=== PATIENT | female | born 1985 | race Caucasian/White ===

== ENCOUNTER → 2016-11-17 15:46 | Outpatient (CLI) | payer MEDICAID ==
[2015-02-07 01:07] VITALS: BMI 22.7
[~2016-11-17 15:46] MED LIST: IBUPROFEN600 MG PO; PERCOCET 5-3251 TAB PO; PRENAVITE1 TAB PO
== END | disposition home or self-care (01) ==
LOC: D.LAB 15:46
DX: O20.0 Threatened abortion (principal)

== ENCOUNTER → 2016-11-19 13:48 | Outpatient (CLI) | payer MEDICAID ==
[2015-02-07 01:07] VITALS: BMI 22.7
== END | disposition home or self-care (01) ==
LOC: D.LABREF 13:48
DX: O20.0 Threatened abortion (principal)

== ENCOUNTER 2016-12-14 05:50 | Day surgery (SDC) | payer MEDICAID ==
[2016-12-13 14:26] LABS: BASOPHILS 0.4 % (0.0-2.0); EOSINOPHILS 13.4 % (0-7); HEMATOCRIT 35.5 % (36.0-48.0); HEMOGLOBIN 12.1 g/dL (12-16); IMMATURE GRANULOCYTES 0.1 % (0-5); LYMPHOCYTES 25.6 % (15-50); MCH 29.5 pg (26.0-34.0); MCHC 34.1 g/dL (31.0-37.0); MCV 86.6 fL (80.0-100.0); MEAN PLATELET VOLUME 9.1 fL (7.4-10.4); MONOCYTES 5.3 % (2-11); NEUTROPHILS 55.2 % (40-80); PLATELET COUNT 176 10x3/uL (130-400); RDW 12.6 % (11.5-14.5); WBC 8.9 10x3/uL (4.8-10.8)
[~2016-12-14] VITALS: Ht 157.5 cm; Wt 48.5 kg
[2016-12-14 05:49] VITALS: BP 106/67; Ht 157.5 cm; Wt 48.5 kg
[2016-12-14] MEDS ORDERED: IBUPROFEN600 MG PO (09:36)
[2016-12-14] MEDS ORDERED: PERCOCET 5-3251 TAB PO (09:36)
--- NOTE | 2016-12-19 07:44 | OP ---
PATIENT NAME: PUMA GUZMAN MEDICAL RECORD: [id number] :83 LOCATION:D.OPS ADMISSION DATE: SURGEON: RALPH SANTOS MD DATE OF OPERATION: 12/14/2016 PREOPERATIVE DIAGNOSES: 1. 8-week missed spontaneous . 2. An embryonic gestation. POSTOPERATIVE DIAGNOSES: 1. 8-week missed spontaneous . 2. An embryonic gestation. SURGEON: Ralph Santos MD. ANESTHESIA: Laryngeal mask anesthesia with Dr. Jose Man MD. PROCEDURE: Dilation and curettage. FINDINGS: Uterus sounded to 8 cm. DESCRIPTION OF PROCEDURE: After informed consent was given, the patient was taken to the operating room where laryngeal mask anesthesia was placed and found to be adequate. She was placed in a dorsal lithotomy position in [facility]. She was prepped and draped sterilely including a vaginal prep. A catheter was placed into her bladder and bladder drained with approximately 100 cc of clear urine return. A bivalve speculum was then placed in the vagina and the cervix visualized and grasped anteriorly with a single-tooth tenaculum. The uterus was then sounded sounding to 8 cm. The sharp and suction curettage was then employed utilizing a 7-mm suction curette until a gritty texture was noted circumferentially within the endometrial cavity. Once this was accomplished, the single-tooth tenaculum was removed and silver nitrate was used at the tenaculum sites with excellent hemostasis noted. The bivalve speculum was removed and 800 mcg of Cytotec was placed rectally to aid additionally in hemostasis and hemostasis was assured. The patient was returned to a supine position, awakened and taken into the recovery room in stable condition. The patient tolerated procedure well. Sponge, lap and instrument counts were reported correct times 2. ESTIMATED BLOOD LOSS: Minimal. URINE OUTPUT: 100 cc. SPECIMENS: Products of conception. COMPLICATIONS: None. TRANSINT:[id number] Voice Confirmation ID: [id number] DOCUMENT ID: [id number] OPERATIVE REPORT [id number] MEGANOLIVIARALPH RODRIGUEZ MD at 0744 CC: [id number] DICTATION DATE: 12/14/16 0834 CANDY SEPARATOR ENROBING: 12/14/[address] [place] [address] 12/14/16 [place] [id number] [place] [address]
== END 2016-12-14 10:00 | disposition home or self-care (01) ==
LOC: D.OPS 05:50 → D.PAN 07:30 → D.OPS 10:00
PROVIDERS: Specialist
DX: O02.1 Missed abortion (principal)

== ENCOUNTER 2017-11-16 06:01 | Emergency (ER) | payer MEDICAID ==
[2016-12-14 05:49] VITALS: BMI 19.6
[2017-11-16 06:27] LABS: BASOPHILS 0.3 % (0-2); EOSINOPHILS 16.1 % (0-7); HEMATOCRIT 39.4 % (36.0-48.0); HEMOGLOBIN 13.4 g/dL (12-16); IMMATURE GRANULOCYTES 0.2 % (0-5); LYMPHOCYTES 29.5 % (15-50); MCH 29.5 pg (26.0-34.0); MCV 86.6 fL (80.0-100.0); MEAN PLATELET VOLUME 9.1 fL (7.4-10.4); MONOCYTES 5.8 % (2-11); NEUTROPHILS 48.1 % (40-80); PLATELET COUNT 206 10x3/uL (130-400); RBC 4.55 10x6/uL (4.00-5.40); RDW 12.4 % (11.5-14.5); WBC 10.7 10x3/uL (4.8-10.8)
[2017-11-16 06:35] LABS: HCG URINE NEGATIVE (NEGATIVE)
[2017-11-16 06:42] LABS: APPEARANCE TURBID (CLEAR); BILIRUBIN NEGATIVE (NEGATIVE); COLOR YELLOW (YELLOW); GLUCOSE NEGATIVE (NEGATIVE); KETONE NEGATIVE (NEGATIVE); NITRITE NEGATIVE (NEGATIVE); PROTEIN TRACE mg/dL (NEGATIVE); SPECIFIC GRAVITY 1.025 (1.005-1.020); UROBILINOGEN NORMAL (NORMAL)
[2017-11-16 06:44] LABS: ALBUMIN 3.9 g/dL (3.4-5.0); ALKALINE PHOSPHATASE 56 U/L (46-116); ALT (SGPT) 23 U/L (10-68); AMYLASE - SERUM 28 U/L (25-115); CALC OSMOLALITY 279 mosm/kg (275-300); CALCIUM 8.8 mg/dL (8.5-10.1); CARBON DIOXIDE 27.2 mmol/L (21.0-32.0); CHLORIDE - SERUM 104 mmol/L (98-107); CREATININE - SERUM 0.6 mg/dL (0.6-1.3); GLUCOSE 115 mg/dL (74-106); LIPASE 78 U/L (73-393); POTASSIUM - SERUM 3.9 mmol/L (3.5-5.1); SODIUM 140 mmol/L (136-145); UREA NITROGEN 12 mg/dL (7-18); eGFR NON AFRICAN AMERICAN > 90 mL/min (90-120)
[2017-11-16 06:50] LABS: RED CELLS - URINE 0-5 /hpf (0-5)
[2017-11-16 06:51] LABS: AMORPHOUS SEDIMENT >1+ /lpf (NONE SEEN); BACTERIA FEW /hpf (NONE SEEN); MUCUS <1+ /lpf (NONE SEEN)
[2017-11-16 06:52] LABS: CALCIUM OXALATE CRYSTALS OCC /hpf (NONE SEEN)
== END 2017-11-16 08:56 | disposition home or self-care (01) ==
LOC: D.ER 06:01
PROVIDERS: Family Medicine
DX: R10.9 Unspecified abdominal pain (principal)